=== PATIENT | female | born 1985 | race African-American/Black ===

== ENCOUNTER 2016-03-15 09:39 | Emergency (ER) | payer OTHER ==
[2016-03-15 09:45] VITALS: BP 140/98; PULSE 81; TEMP 98.3; BMI 20.3
--- NOTE | 2016-03-15 11:00 | PDOC ---
History of Present Illness - General Chief Complaint: Cold Symptoms Stated Complaint: SOB Time Seen by Provider: 03/15/16 10:01 History Source: Patient Exam Limitations: No Limitations - History of Present Illness Initial Comments: 03/15/16 20:21 Chief complaint: Intermittent shortness of breath History of present illness: Patient reports nasal congestion 1 week dry cough, and intermittent wheezing this week. Patient had intermittent shortness of breath, even at rest/. She reports intermittent chest discomfort with coughing only. Patient has been afebrile. Patient denies any body aches presently. Patient denies any shortness of breath presently. 03/15/16 20:24 Timing/Duration: intermittent (since 03/10/16) Severity: moderate Associated Symptoms: reports: cough (dry ), shortness of breath (intermittent since 03/10/16), other (nasal congestion , chest tightness) Past History - Past Medical History Allergies/Adverse Reactions: Allergies Allergy/AdvReac Type Severity Reaction Status Date / Time No Known Allergies Allergy Verified 03/15/16 09:44 Home Medications: Ambulatory Orders Albuterol 0.083% Nebulizer Vanita [Ventolin 0.083% Nebulizer Soln -] 1 neb NEB Q4H PRN #1 vial 03/15/16 Albuterol Sulfate Inhaler - [Ventolin HFA Inhaler -] 2 inh PO Q4H PRN #1 inh 01/19 Fluticasone Prop 0.05% Nasal [Flonase] 1 spray NS BID #1 spraybtl MDD 2 Fluticasone/Salmeterol [Advair Hfa 115-21 Mcg Inhaler] 1 inh PO BID #1 inhaler MDD 2 03/15/16 Montelukast Na [Singulair -] 10 mg PO HS #30 tablet MDD 1 03/15/16 Asthma: Yes - Surgical History Abdominal Surgery: Yes (umbilical hernia) - Psycho/Social/Smoking Cessation Hx Anxiety: No Suicidal Ideation: No Smoking History: Never smoked Number of Cigarettes Smoked Daily: 5 Hx Alcohol Use: No Drug/Substance Use Hx: No Substance Use Type: None Review of Systems - Review of Systems Able to Perform ROS?: Yes Constitutional: No: Symptoms Reported HEENTM: Yes: Nose Congestion Respiratory: Yes: Cough, Shortness of Breath, SOB with Exertion, SOB at Rest ( intermittent ), Wheezing Cardiac (ROS): Yes: Chest Pain (when chest is tight), Chest Tightness ABD/GI: No: Symptoms Reported : No: Symptoms Reported Musculoskeletal: No: Symptoms Reported Integumentary: No: Symptoms Reported Neurological: No: Symptoms reported *Physical Exam - Vital Signs Last Vital Signs Temp Pulse Resp BP Pulse Ox 98.3 F 81 20 140/98 100 03/15/16 09:41 03/15/16 09:41 03/15/16 09:41 03/15/16 09:41 03/15/16 09:41 - Physical Exam General Appearance: Yes: Appropriately Dressed HEENT: positive: Nasal Congestion. negative: Pharyngeal Erythema, Tonsillar Exudate, Tonsillar Erythema, Rhinorrhea, Sinus Tenderness Neck: negative: Lymphadenopathy (R), Lymphadenopathy (L) Respiratory/Chest: positive: Lungs Clear, Normal Breath Sounds. negative: Chest Tender, Respiratory Distress Cardiovascular: positive: Regular Rhythm, Regular Rate, S1, S2 Integumentary: positive: Normal Color Neurologic: positive: Alert, Normal Response, Responsive Medical Decision Making - Medical Decision Making 03/15/16 20:23 Patient reports nasal congestion 1 week dry cough, and intermittent wheezing this week. Patient had intermittent shortness of breath. She reports intermittent chest discomfort with coughing only. Patient has been afebrile. Patient denies any body aches presently. 03/15/16 20:24 nasal congestion, cough wheezing intermitently PLAN: singulair 10 mg daily advair 115/21 mcg 1 inhale bid Albuterol nebulizer 0.83% solution every 4 hours as needed for shortness of breath wheezing Ventolin HF a inhaler 2 puffs every 4 hours as needed for shortness of breath or wheezing 03/15/16 20:25 03/15/16 20:26 *DC/Admit/Observation/Transfer Diagnosis at time of Disposition: Asthma exacerbation, mild - Discharge Dispostion Disposition: HOME Condition at time of disposition: Stable - Prescriptions Prescriptions: Fluticasone/Salmeterol [Advair Hfa 115-21 Mcg Inhaler] 1 inh PO BID #1 inhaler MDD 2 Fluticasone Prop 0.05% Nasal [Flonase] 1 spray NS BID #1 spraybtl MDD 2 Montelukast Na [Singulair -] 10 mg PO HS #30 tablet MDD 1 Albuterol 0.083% Nebulizer Vanita [Ventolin 0.083% Nebulizer Soln -] 1 neb NEB Q4H PRN #1 vial PRN Reason: Short Of Breath/Wheezing Albuterol Sulfate Inhaler - [Ventolin HFA Inhaler -] 2 inh PO Q4H PRN #1 inh PRN Reason: Short Of Breath/Wheezing - Referrals Referrals: Braulio Munguia MD [Primary Care Provider] - - Patient Instructions Additional Instructions: Return to emergency room if any shortness of breath or difficulty breathing Follow up With your primary care provider within the next few days Patient voiced understanding of discharge instructions and all questions were answered
== END 2016-03-15 11:12 | disposition home or self-care (01) ==
LOC: JERFT 09:39
DX: J45.21 Mild intermittent asthma with (acute) exacerbation (principal)
CPT/HCPCS: 99281-25

== ENCOUNTER 2016-04-06 16:56 | Emergency (ER) | payer OTHER ==
[2016-04-06 17:31] VITALS: BP 128/71; PULSE 75; TEMP 98.4; BMI 20.3
--- NOTE | 2016-04-06 18:01 | PDOC ---
History of Present Illness - General Chief Complaint: Back Pain Stated Complaint: BACK PAIN,FALL Time Seen by Provider: 04/06/16 17:29 History Source: Patient Exam Limitations: No Limitations - History of Present Illness Initial Comments: 04/06/16 17:58 30 yr female slipped and fell 3 days ago injured low back. no head trauma. Pt c/ o pain to low back and to the left shoulder. no abd pain no nvd. Severity: reports: mild Pain Location: reports: back, upper extremity (left shoulder ) Modifying Factors: improves with: None Loss of Consciousness: no loss of consciousness Associated Symptoms (Fall): denies symptoms Past History - Past Medical History Allergies/Adverse Reactions: Allergies Allergy/AdvReac Type Severity Reaction Status Date / Time No Known Allergies Allergy Verified 04/06/16 17:22 Home Medications: Ambulatory Orders Albuterol 0.083% Nebulizer Vanita [Ventolin 0.083% Nebulizer Soln -] 1 neb NEB Q4H PRN #1 vial 03/15/16 Albuterol Sulfate Inhaler - [Ventolin HFA Inhaler -] 2 inh PO Q4H PRN #1 inh 01/19 Fluticasone Prop 0.05% Nasal [Flonase] 1 spray NS BID #1 spraybtl MDD 2 Fluticasone/Salmeterol [Advair Hfa 115-21 Mcg Inhaler] 1 inh PO BID #1 inhaler MDD 2 03/15/16 Montelukast Na [Singulair -] 10 mg PO HS #30 tablet MDD 1 03/15/16 Asthma: Yes - Surgical History Abdominal Surgery: Yes (umbilical hernia) - Immunization History Immunization Up to Date: Yes - Psycho/Social/Smoking Cessation Hx Anxiety: No Suicidal Ideation: No Smoking History: Current every day smoker Have you smoked in the past 12 months: Yes Number of Cigarettes Smoked Daily: 3 Information on smoking cessation initiated: No Hx Alcohol Use: No Drug/Substance Use Hx: No Substance Use Type: None Trauma Specific PMHX - Complaint Specific PMHX Arthritis: No Back Injury: Yes Neck Injury: No Hx Sacro Iliac Joint Dysfunction: No Review of Systems - Review of Systems Able to Perform ROS?: Yes Is the patient limited Citizen Of [place] proficient: No Constitutional: No: Symptoms Reported HEENTM: No: Symptoms Reported Respiratory: No: Symptoms reported Cardiac (ROS): No: Symptoms Reported ABD/GI: No: Symptoms Reported : No: Symptoms Reported Musculoskeletal: Yes: Symptoms Reported, Back Pain, Other (right shoulder ) *Physical Exam - Vital Signs Last Vital Signs Temp Pulse Resp BP Pulse Ox 98.4 F 75 20 128/71 98 04/06/16 17:23 04/06/16 17:23 04/06/16 17:23 04/06/16 17:23 04/06/16 17:23 - Physical Exam General Appearance: Yes: Nourished, Appropriately Dressed HEENT: positive: EOMI, MICKY, Normal ENT Inspection, TMs Normal, Pharynx Normal Neck: positive: Supple. negative: Tender Respiratory/Chest: positive: Lungs Clear, Normal Breath Sounds. negative: Chest Tender Cardiovascular: positive: Regular Rhythm, Regular Rate Gastrointestinal/Abdominal: positive: Normal Bowel Sounds, Soft. negative: Tender Musculoskeletal: positive: Normal Inspection, Vertebral Tenderness (lumbar spine , echymosis to left paraspinal soft tissue TTP) Extremity: positive: Normal Capillary Refill, Normal Inspection, Normal Range of Motion Integumentary: positive: Normal Color, Dry, Warm Neurologic: positive: Fully Oriented, Alert, Normal Mood/Affect, Normal Response , Motor Strength 5/5 Medical Decision Making - Medical Decision Making 04/06/16 18:00 cc: slip and fall on ice in parking lot injured low back will check UA for blood, xray to r/o fracture 04/06/16 19:41 pt eloped stated she did not want to wait for urine results. pt got self dressed and left ER. Of note pt was having a cell phone conversation and arguing loudly with the other person on the phone. *DC/Admit/Observation/Transfer Diagnosis at time of Disposition: Back pain - Discharge Dispostion Disposition: ELOPED
[2016-04-06 18:31] LABS: URINE APPEARANCE CLEAR; URINE BILIRUBIN NEGATIVE (NEGATIVE); URINE COLOR YELLOW; URINE GLUCOSE (UA) NEGATIVE (NEGATIVE); URINE KETONE NEGATIVE (NEGATIVE); URINE NITRITE NEGATIVE (NEGATIVE); URINE PROTEIN NEGATIVE (NEGATIVE); URINE UROBILINOGEN 2.0 E.U/dl E.U./dl (0.2-1.0)
[2016-04-06 18:38] LABS: URINE BLOOD 3+ (NEGATIVE); URINE LEUK ESTERASE 1+ (NEGATIVE)
[2016-04-06 18:39] LABS: URINE BACTERIA RARE /hpf (NONE SEEN); URINE MUCUS RARE; URINE RBC 47 /hpf (0-3); URINE WBC 16 /hpf (3-5)
== END 2016-04-06 19:51 | disposition left against medical advice (07) ==
LOC: JERFT 16:56
DX: M54.5 Low back pain (principal); W00.2XXA Other fall from one level to another due to ice and snow, initial encounter; Y93.89 Activity, other specified; Y92.481 Parking lot as the place of occurrence of the external cause; Y99.8 Other external cause status
CPT/HCPCS: 81003; 81015; 84703; 99281-25

== ENCOUNTER 2020-04-15 14:36 | Emergency (ER) | payer OTHER ==
[2020-04-15 14:53] VITALS: BP 143/75; PULSE 83; TEMP 98; BMI 18.8
[2020-04-15] MEDS ORDERED: SODIUM CHLORIDE 1,000 ML IV STA (16:07)
[2020-04-15] MEDS ORDERED: ACETAMINOPHEN 1000 MG/100 ML VIAL (NON FORMULARY) IVPB ONE (16:07)
[2020-04-15] MEDS ORDERED: ONDANSETRON 4 MG/2 ML VIAL IVPUSH ONE (16:14)
[2020-04-15] MEDS ORDERED: ONDANSETRON 4 MG/2 ML VIAL ONE (16:48)
[2020-04-15 17:37] LABS: BASO % 1.1 % (0-2.0); EOS % 0.7 % (0-4.5); HEMATOCRIT 38.2 % (32.4-45.2); HEMOGLOBIN 12.5 GM/dL (10.7-15.3); LYMPH % 12.3 % (8-40); MCH 27.1 pg (25.7-33.7); MCHC 32.6 g/dl (32.0-36.0); MEAN CELL VOLUME 82.9 fl (80-96); MEAN PLT VOLUME 9.3 fl (7.5-11.1); MONO % 6.5 % (3.8-10.2); NEUT % 79.4 % (42.8-82.8); PLATELET COUNT 265 K/MM3 (134-434); RBC 4.61 M/mm3 (3.60-5.2); RDW 17.4 % (11.6-15.6); WHITE BLOOD COUNT 9.1 K/mm3 (4.0-10.0)
[2020-04-15] MEDS ORDERED: METOCLOPRAMIDE HCL INJECTION 10 MG/2 ML VIAL IVPB ONE (17:43)
[2020-04-15 18:02] LABS: CALCIUM 9.1 mg/dL (8.5-10.1)
[2020-04-15 18:03] LABS: ALBUMIN 4.2 g/dl (3.4-5.0); BLOOD UREA NITROGEN 13.6 mg/dL (7-18)
[2020-04-15 18:06] LABS: CREATININE 0.8 mg/dL (0.55-1.3)
[2020-04-15 18:08] LABS: BILIRUBIN,TOTAL 0.4 mg/dL (0.2-1); TOT PROT 8.4 g/dl (6.4-8.2)
[2020-04-15] MEDS ORDERED: KETOROLAC TROMETHAMINE 60 MG/2 ML VIAL IVPUSH ONE (18:31)
[2020-04-15] MEDS ORDERED: KETOROLAC TROMETHAMINE 30 MG/1 ML VIAL ONE (18:39)
[2020-04-15] MEDS ORDERED: METOCLOPRAMIDE HCL INJECTION 10 MG/2 ML VIAL ONE (18:39)
== END 2020-04-15 19:30 | disposition home or self-care (01) ==
LOC: JER 14:36
PROC: 3E0333Z Introduction of Anti-inflammatory into Peripheral Vein, Percutaneous Approach (ICD-10-PCS; principal; 2020-04-15)
PROC: 3E0333Z Introduction of Anti-inflammatory into Peripheral Vein, Percutaneous Approach (ICD-10-PCS; 2020-04-15)
PROC: 3E033GC Introduction of Other Therapeutic Substance into Peripheral Vein, Percutaneous Approach (ICD-10-PCS; 2020-04-15)
PROC: 3E033GC Introduction of Other Therapeutic Substance into Peripheral Vein, Percutaneous Approach (ICD-10-PCS; 2020-04-15)
PROC: 3E0337Z Introduction of Electrolytic and Water Balance Substance into Peripheral Vein, Percutaneous Approach (ICD-10-PCS; 2020-04-15)
DX: N93.8 Other specified abnormal uterine and vaginal bleeding (principal); D25.2 Subserosal leiomyoma of uterus
CPT/HCPCS: 36415; 76830-TC; 80053; 85025; 86850; 86900; 86901; 99284-25; J0131